=== PATIENT | male | born 1985 | race Hispanic/Latino ===

== ENCOUNTER 2016-10-22 10:38 | Emergency (ER) | payer SELFPAY ==
[~2016-10-22] VITALS: Ht 152.4 cm; Wt 80.0 kg
[2016-10-22 10:55] VITALS: BP 116/78; PULSE 80; RESP 16; O2SAT 99
--- NOTE | 2016-10-22 11:02 | ED.REPORT ---
HPI-Back Pain Under 40 Date of Service Oct 22, 2016 ED Provider: Doc,Ed MD History of Present Illness: fell at home yesterday fall and sat down landing on left pain but pain is in the middle. pain with sitting on the toliet. took 800 mg ibuprofen. pain is 10/10. primary care is no one. Nursing Notes Stated Complaint: BACK PAIN,FELL DOWN STAIR Chief Complaint: Multiple Trauma/Fall Nursing Notes Reviewed: Yes Allergies: Coded Allergies: No Known Allergies (Unverified , 10/22/16) General Time Seen by MD: 11:01 Chief Complaint Lumbar pain Hx Obtained From: Patient Sudden in Onset?: Yes Caused by: Fall Past Medical History Past Medical History Denies: Asthma, Diabetes mellitus Past Surgical History denies Smoking History Never Smoker Social History Alcohol Use: Denies alcohol use Drug Use: Denies drug use Occupation lives with , work [employer] 10/22/2016 Ambulatory Status Independent Review of Systems Basic Review of Systems Eyes: Vision NL, No discharge Skin: No bruising, No rash, No itch Psychiatric: Normal thought content Physical Exam Initial Vital Signs Vital Signs (First) Date Time Temp Pulse Resp B/P Pulse Ox O2 Delivery O2 Flow Rate FiO2 10/22/16 10:55 36.4 80 16 116/78 99 Room Air Initial VS: Reviewed, Vital signs normal Head / Eyes: Atraumatic, Normocephalic, PERRL ENT: Mucous membranes moist, Conjunctiva normal, No scleral icterus Neck: Supple, Non-tender, Full range of motion Respiratory: Breath sounds normal, Clear to auscultation, No respiratory distress Cardiovascular: Heart sounds normal, Intact distal pulses Abdomen / GI: Soft, Non-tender, No guarding, No rebound, No distention Lymphatic: No lymphadenopathy Extremities: Vascular intact, Neuro intact, No swelling, No tenderness Skin: Warm, Dry, No cyanosis Psychiatric: Mood/affect normal, Behavior normal, Normal thought content General/Constitutional: Awake, Alert, No acute distress, Well appearing, Well developed, Well hydrated, Well nourished, Cooperative, Not toxic appearing Back: Atraumatic, Inspection NL Flank / Spine / Paraspinal: Positive: Lumbar paraspinal tend... (Low) exam of the hip does not show any bruising or skin disruption. not tender at that area. Patient reporting pain lower lumbar paraspinal area Neurologic: Oriented X3, Speech NL, No motor deficits Respiratory / Chest: Atraumatic, Breath sounds NL, Breath sounds = bilat, No respiratory distress Cardiovascular: Heart rate NL, Regular rhythm, Heart sounds NL, No gallop Interpretation & Diagnostics Interpretation & Diagnostics: INDICATIONS: fall pain TECHNIQUE: 2 views of the lumbar spine were acquired. COMPARISON: None. FINDINGS: Bones: 5 [id number] vertebrae are present. There is normal bony alignment. No vertebral body compression fractures. No suspicious bony lesions. Multilevel endplate osteophytes. Facet hypertrophy L4-L5 and L5-S1. Soft tissues: Overlying bowel gas pattern is normal. No suspicious soft tissue calcifications. IMPRESSION: Multilevel degenerative disc and facet disease. No acute fracture. No osseous lesion. If symptoms and/or clinical suspicion for pathology persist, further assessment with repeat, or advanced imaging (e.g., CT, MRI, or bone scan) may be helpful for further assessment. Lab Results Interpretation Test 10/22/16 12:15 Hold Urine Received (Received) Lab Results Interpretation: urine negative for blood. u tox positive for opiates, oxycodone and methadon X-Ray Interpretation Xray Interpretation: ccession#: [id number] Date of Service: 10/22/16 1111 PROCEDURE: X-RAY PELVIS W/LAT HIP (LT) ([id number]) INDICATIONS: fall pain TECHNIQUE: AP pelvis with lateral view(s) of the left hip(s). COMPARISON: None. FINDINGS: Bones: No fractures or dislocations. Pelvic ring appears intact. No suspicious bony lesions. Soft tissues: The visualized bowel gas pattern is normal. No suspicious soft tissue calcifications. IMPRESSION: No acute fracture. No osseous lesion. If symptoms and/or clinical suspicion for pathology persist, further assessment with repeat, or advanced imaging (e.g., CT, MRI, or bone scan) may be helpful for further assessment. Dictated by: Loyda Iglesias M.D. on 10/22/2016 at 12:15 Approved by: Loyda Iglesias M.D. on 10/22/2016 at 12:15 Re-Eval/Medical Decision Med Decision/Clinical Course 31 year old male presents with lower back pain after slipping on a book and landing on his left side yesterday am. Urine is negative for any blood. X-rays of lower back and pelvis are negative for bony damage. Patient with non focal exam. No sign of fracture or herniated disk Discharge & Departure Impression: Primary Impression: Fall Encounter type: initial encounter Qualified Code: W19.XXXA - Unspecified fall, initial encounter Additional Impression: Low back pain Chronicity: acute Sciatica presence: without sciatica Disposition: Home Patient Instructions: Acute Low Back Pain (ED), Fall Prevention for Children ( ED), Fall Prevention for Older Adults (GEN) Additional Instructions: The x-rays are negative for any sign of bony damage. Use ice 15 minutes on and 15 minutes off for 4 days. Gentle movement is best, do not stay in bed or sit in a chair for an extended period of time. Use ketorolac 10 mg up to 4 times a day for pain. Use hydrocodone 5/325 1 up to 2 times a day as needed for severe unrelenting pain. You need to establish in primary care, consider the residency clinic. Your urine was positive for opiates, methadone and oxycodone. It is important that any future pain management come from primary care. Referrals: OTHER,PHYSICIAN (PCP) [facility] EDSupervising Provider for APC: Mal Shaw DO copies to: [facility] Mariely Jay Oct 22, 2016 11:02
[2016-10-22] MEDS ORDERED: Ketorolac 30 mg/mL 2 mL Inj IM ONE (11:15)
--- NOTE | 2016-10-22 12:16 | DRSVH ---
PROCEDURE: X-RAY PELVIS W/LAT HIP (LT) ([id number]) INDICATIONS: fall pain TECHNIQUE: AP pelvis with lateral view(s) of the left hip(s). COMPARISON: None. FINDINGS: Bones: No fractures or dislocations. Pelvic ring appears intact. No suspicious bony lesions. Soft tissues: The visualized bowel gas pattern is normal. No suspicious soft tissue calcifications. IMPRESSION: No acute fracture. No osseous lesion. If symptoms and/or clinical suspicion for patholog y persist, further assessment with repeat, or advanced imaging (e.g., CT, MRI, or bone scan) may be h elpful for further assessment. Dictated by: Loyda Iglesias M.D. on 10/22/2016 at 12:15 Approved by: Loyda Iglesias M.D. on 10/22/2016 at 12:15
--- NOTE | 2016-10-22 12:17 | DRSVH ---
PROCEDURE: X-RAY LUMBAR SPINE, 2 OR 3 VIEW INDICATIONS: fall pain TECHNIQUE: 2 views of the lumbar spine were acquired. COMPARISON: None. FINDINGS: Bones: 5 [id number] vertebrae are present. There is normal bony alignment. No vertebral body c ompression fractures. No suspicious bony lesions. Multilevel endplate osteophytes. Facet hypertroph y L4-L5 and L5-S1. Soft tissues: Overlying bowel gas pattern is normal. No suspicious soft tissue calcifications. IMPRESSION: Multilevel degenerative disc and facet disease. No acute fracture. No osseous lesion. If symptoms and/or clinical suspicion for pathology persist, further assessment with repeat, or advanced imaging (e.g., CT, MRI, or bone scan) may be helpful for further assessment. Dictated by: Loyda Iglesias M.D. on 10/22/2016 at 12:15 Approved by: Loyda Iglesias M.D. on 10/22/2016 at 12:16
== END 2016-10-22 12:52 | disposition home or self-care (01) ==
LOC: SED 10:38
DX: M54.5 Low back pain (principal); W01.0XXA Fall on same level from slipping, tripping and stumbling without subsequent striking against object, initial encounter; Y93.01 Activity, walking, marching and hiking; Y99.8 Other external cause status; Y92.019 Unspecified place in single-family (private) house as the place of occurrence of the external cause
CPT/HCPCS: 72100; 73501; 81002; 96372; 99284; J1885